=== PATIENT | male | born 1960 | race Caucasian/White ===

== ENCOUNTER 2024-02-28 10:05 | Inpatient (IN) | payer OTHER, SELFPAY ==
[2024-02-28] VITALS (11 sets, daily range): BP systolic 114–137; BP diastolic 72–94; PULSE 68–86; RESP 15–20; TEMP 36.6–37.3; O2SAT 90–99; BMI 35.0
--- NOTE | ~2024-02-28 | US_ITS ---
EXAMINATION: US venous doppler [facility] DATE: 02/28/2024 11:20 INDICATION: Left lower limb erythema and swelling TECHNIQUE: Grayscale ultrasound images without and with compression and Doppler ultrasound images of the left lower extremity veins were obtained. COMPARISON: None. FINDINGS: The visualized portions of left common femoral vein, profunda (deep) femoral vein, femoral vein, popl iteal vein, peroneal trunk, peroneal veins, posterior tibial veins and greater saphenous vein outflow are patent. IMPRESSION: 1. No deep venous thrombosis in the left lower limb. Reviewed, dictated and finalized at location A.
[2024-02-28 11:57] LABS: Basophils Percent Auto 0.3 % (0.2-1.2); Eosinophils Absolute Auto 0.3 K/mm3 (0-0.3); Eosinophils Percent Auto 2.4 % (0-4.4); Hemoglobin 14.6 g/dL (14.0-18.0); Immature Granulocyte Absolute 0.06 K/mm3 (0.00-0.031); Immature Granulocyte Percent A 0.5 % (0-0.5); Lymphocytes Absolute Auto 1.31 K/mm3 (0.9-3.2); Lymphocytes Percent Auto 10.9 % (18.3-44.2); Mean Corpuscular Volume 88.5 fl (80-100); Mean Platelet Volume 9.4 fl (7.4-10.4); Monocytes Absolute Auto 1.3 K/mm3 (0.1-0.6); Monocytes Percent Auto 10.4 % (2.6-8.5); Neutrophils Percent Auto 75.5 % (45.5-73.1); Platelet Count Result 213 k/mm3 (150-375); Red Blood Count 4.86 M/mm3 (4.6-6.20); Red Cell Distribution Width 12.4 % (11.5-14.5)
[2024-02-28 12:07] LABS: Alanine Aminotransferase 18 U/L (6-50); Albumin Level 3.9 g/dL (3.5-5.1); Alkaline Phosphatase 107 U/L (38-126); Anion Gap 7 mmol/L (4-12); Aspartate Amino Transferase 24 U/L (17-59); Bilirubin,Total 0.8 mg/dL (0.2-1.3); Blood Urea Nitrogen 22 mg/dL (9-20); Calcium 9.6 mg/dL (8.4-10.2); Carbon Dioxide 29 mmol/L (22-30); Chloride 100 mmol/L (98-107); Estimated CRCL calculation 65 ml/min; Estimated Glomerular Filt Rate 56; Glucose 182 mg/dL (65-110); Potassium 3.5 mmol/L (3.4-5.0); Sodium 136 mmol/L (137-145)
[2024-02-28 12:08] LABS: Lactic Acid Reflex 1.5 mmol/L (0.7-2.0)
[2024-02-28 12:10] LABS: INR 1.1; Prothrombin Time 14.2 Seconds (11.1-14.7)
[2024-02-28] MEDS: CEFEPIME 1 GM/NS 50 ML 1 GM/50 ML BAG IVPB ×2 (13:10→23:26)
[2024-02-28] MEDS: ONDANSETRON INJ 4 MG/2 ML VIAL IV PUSH (13:10)
[2024-02-28] MEDS: MORPHINE SULFATE (*CRX) 4 MG/ML INJ IV PUSH (13:10)
[2024-02-28] MEDS: SODIUM CHLORIDE 0.9% IV 1,000 ML 150 ML IV CONT (13:12)
--- NOTE | 2024-02-28 13:13 | ED.GENADULT ---
HPI - General Adult General Chief complaint: Extremity Problem,Nontraumatic Stated complaint: left leg infection Time Seen by Provider: 02/28/24 10:33 Source: patient Mode of arrival: ambulatory Limitations: no limitations History of Present Illness HPI narrative: 63-year-old with a history of diabetes, hypertension, recurrent cellulitis to his left leg here with a complaint of pain, redness for past several days. He denies any trauma. No history of fever or chills with it is states that redness is extending all the way up to his groin. Onset (ago): week(s) (1) Location: lower extremity (Left leg) Radiation: extremity Severity: moderate Quality: aching Pain Consistency: constant Relieving factors: none Exacerbating factors: none Related Data Allergies Allergy/AdvReac Type Severity Reaction Status Date / Time No Known Allergies Allergy Unknown Verified 01/14/08 09:47 Review of Systems Review of Systems: All systems reviewed & are unremarkable except as noted in HPI and below Constitutional: Constitutional: Reports no additional constitutional complaints Eyes: Eyes: Reports no additional eye complaints ENT: Reports system reviewed and no additional complaints, except as documented Cardiovascular: Cardiovascular: Reports no additional cardiovascular complaints Respiratory: Respiratory: Reports no additional respiratory complaints Gastrointestinal: Gastrointestinal: Reports no additional gastrointestinal complaints Musculoskeletal: Musculoskeletal: Reports as per HPI Integumentary/Breasts: Skin/Breast: Reports as per HPI Neurologic: Reports system reviewed and no additional complaints, except as documented Psychiatric: Psychiatric: Reports no additional psychiatric complaints Exam Narrative: GENERAL: Well-appearing, well-nourished, and in no acute distress. HEAD: Normocephalic, atraumatic. EYES: PERRLA and EOMI. ENT: Nares clear, no rhinorrhea or epistaxis. Mucous membranes moist. NECK: Supple. CHEST: Clear to auscultation. No respiratory distress. HEART: Regular rate and rhythm. No murmur heard. Normal peripheral pulses. ABDOMEN: Soft, nontender, nondistended, normal active bowel sounds. EXTREMITIES: Normal range of motion. Examination of his left lower extremity shows moderate redness, swelling and warmth on palpating redness extending into his left groin SKIN: Warm, dry, no rash. NEURO: No focal deficits. Alert and oriented x3. PSYCH: Normal mood and affect. Course Course Emergency Course: Notified patient about his lab work, venous Doppler studies. Agreeable with admission. I discussed with hospitalist accepted the patient. Vital Signs Vital signs: Vital Signs Temperature 36.7 C 02/28/24 10:07 Pulse Rate 86 02/28/24 10:07 Respiratory Rate 18 02/28/24 10:07 Blood Pressure 137/79 02/28/24 10:07 Pulse Oximetry 97 02/28/24 10:07 Oxygen Delivery Room Air 02/28/24 10:07 Temperature 37.0 C 02/28/24 12:46 Pulse Rate 72 02/28/24 12:46 Respiratory Rate 18 02/28/24 12:46 Blood Pressure 114/80 02/28/24 12:46 Pulse Oximetry 97 02/28/24 12:46 Oxygen Delivery Room Air 02/28/24 10:07 Medical Decision Making Vital Signs Vital Signs: Vital Signs Temperature 36.7 C 02/28/24 10:07 Pulse Rate 86 02/28/24 10:07 Respiratory Rate 18 02/28/24 10:07 Blood Pressure 137/79 02/28/24 10:07 Pulse Oximetry 97 02/28/24 10:07 Oxygen Delivery Room Air 02/28/24 10:07 Temperature 37.0 C 02/28/24 12:46 Pulse Rate 72 02/28/24 12:46 Respiratory Rate 18 02/28/24 12:46 Blood Pressure 114/80 02/28/24 12:46 Pulse Oximetry 97 02/28/24 12:46 Oxygen Delivery Room Air 02/28/24 10:07 Lab Data 02/28/24 11:50 02/28/24 11:50 Labs: Lab Results 02/28/24 Range/Units 11:50 WBC 12.0 H (4.5-10.0) K/mm3 RBC 4.86 (4.6-6.20) M/mm3 Hgb 14.6 (14.0-18.0) g/dL Hct 43.0 (42.0-52.0) % MCV
[2024-02-28] MEDS: VANCOMYCIN 1,500 MG/NS 500 ML 1,500 MG/500 ML BAG 333.33 MG IVPB (13:55)
[2024-02-28] MEDS: SODIUM CHLORIDE 0.9% IV 1,000 ML 125 ML IV CONT (13:56)
--- NOTE | 2024-02-28 14:42 | PC.NURSE ---
This patient, Jay Auguste, was admitted to [facility] Surg Room 309-01. Patient/family oriented to hospital policies and general routines including ID bracelet, bed and alarms, visiting hours, pain management, procedures, bathroom and other care routines, personal items, smoking policy, room service/diet, and visiting hours. Information on how to activate the Rapid Response Team has been discussed. Patient/Family are encouraged to report perceived risks to care and to ask questions if they do not understand what they are told or what they should do.
--- NOTE | 2024-02-28 14:47 | PM.IMHP ---
H&P: HPI History of Present Illness Date/Time: 02/28/24 14:00 Chief Complaint: Redness and swelling of the left leg. Narrative: This is a 63-year-old male smoker with history of cellulitis, hypertension, hyperlipidemia, and type 2 diabetes mellitus who presented to the emergency department for evaluation of redness and swelling of the left lower leg. The patient provides the following history. He has developed pain, redness, and swelling of the left lower leg the past couple of days and he came in today as the redness is starting to extend up to his groin. He describes a moderate, aching throbbing pain in that leg. These symptoms are similar to prior episodes of cellulitis. He denies systemic symptoms such as fever, chills, sweats, nausea, and vomiting. He also denies chest pain, pleuritic pain shortness In the ED: He was afebrile on arrival with stable vital signs. Labs were significant for WBC count of 12.0, sodium 136, BUN 22, creatinine 1.30, glucose 182. Left leg venous Doppler ultrasound was negative for DVT. He received 1 g cefepime and 1500 mg vancomycin in the ED and he is being admitted in this setting for further IV antibiotics for left lower extremity cellulitis. Review of Systems Review of Systems: 12 systems were reviewed and are negative except for as per HPI. [facility]LY [facility] Past Medical History Medical History Diabetic neuropathy Hyperlipidemia Hypertension Type 2 diabetes mellitus Surgical History Surgical History (Updated 02/28/24 @ 19:59 by Sherri Dubose PA-C) History of arthroscopy of right knee Social History Social History (Updated 02/28/24 @ 19:59 by Sherri Dubose PA-C) Social History: Surrogate medical decision maker: Phi Auguste, sibling. Code status: Full code. Smoking packs per day: 1 Smoking cigarettes per day: 20.0 Years smoked: 56 Smoking pack-years: 56.00 Smoking status: Current every day smoker Tobacco type: cigarettes Second hand tobacco smoke exposure: No Alcohol intake: former Substance use: current Substance use type: marijuana Last use: 02/21/24 Do You Feel Safe in your Home?: Yes Lack of Transportation: No Lack of Food: Never True Current Housing: I Have Housing Concerned About Future Housing: No Difficulty Paying Gas/Electric Bills: No Difficulty Paying for Meds: No Currently Unemployed: No Education: High School Diploma/GED Difficulty w/ Childcare or Family Care: No Spiritual care concerns: No Meds Home Medications and Allergies Home Medications Medication Instructions Recorded Confirmed Type albuterol sulfate 90 mcg/actuation 2 puff inhalation Q4H PRN sob 02/28/24 02/28/24 History aerosol inhaler amlodipine 10 mg tablet 10 mg PO DAILY 02/28/24 02/28/24 History empagliflozin 25 mg tablet 25 mg PO DAILY 02/28/24 02/28/24 History (Jardiance) gabapentin 600 mg tablet 600 mg PO Q12H 02/28/24 02/28/24 History glipizide 10 mg tablet 10 mg PO BID 02/28/24 02/28/24 History losartan 100 1 tablet PO DAILY 02/28/24 02/28/24 History mg-hydrochlorothiazide 25 mg tablet metformin 500 mg tablet,extended 1,000 mg PO BID 02/28/24 02/28/24 History release 24 hr simvastatin 20 mg tablet 20 mg PO DAILY 02/28/24 02/28/24 History Allergies Allergy/AdvReac Type Severity Reaction Status Date / Time No Known Allergies Allergy Unknown Verified 02/28/24 15:19 Vital Signs Vital Signs - 24 hr 02/28/24 10:07 02/28/24 10:54 02/28/24 11:17 Temperature 98.0 F 98.6 F Pulse Rate 86 75 71 Respiratory Rate 18 20 17 Blood Pressure 137/79 124/74 120/83 Pulse Oximetry 97 94 96 Oxygen Delivery Room Air 02/28/24 11:51 02/28/24 12:01 02/28/24 12:17 Temperature 97.8 F Pulse Rate 72 75 73 Respiratory Rate 18 19 20 Blood Pressure 117/76 120/83 123/75 Pulse Oximetry 97 98 97 Oxygen Delivery 02/28/24 12:46 02/28/24 13:01 02/28/24 13:31 Temperatur
[2024-02-28 16:20] LABS: Hemoglobin A1C 8.5 % (<5.7)
[2024-02-28 18:29] LABS: Glucose Point of Care 147 mg/dl (65-105)
[2024-02-28 20:14] LABS: Glucose Point of Care 226 mg/dl (65-105)
[2024-02-28] MEDS: HYDROcodone/acetaminophen (*CRX) 5-325 MG TABLET 1 TAB PO (20:41)
[2024-02-28] MEDS: GABAPENTIN 300 MG CAPSULE 600 MG PO (20:42)
[2024-02-29 05:26] LABS: Basophils Percent Auto 0.4 % (0.2-1.2); Eosinophils Absolute Auto 0.7 K/mm3 (0-0.3); Eosinophils Percent Auto 7.1 % (0-4.4); Hematocrit 39.3 % (42.0-52.0); Hemoglobin 12.9 g/dL (14.0-18.0); Immature Granulocyte Absolute 0.05 K/mm3 (0.00-0.031); Immature Granulocyte Percent A 0.5 % (0-0.5); Lymphocytes Percent Auto 18.3 % (18.3-44.2); Mean Corpuscular HGB Conc 32.8 g/dl (32-36); Mean Corpuscular Hemoglobin 30.1 pg (26-34); Mean Corpuscular Volume 91.8 fl (80-100); Monocytes Absolute Auto 1.3 K/mm3 (0.1-0.6); Monocytes Percent Auto 13.6 % (2.6-8.5); Neutrophils Absolute Auto 5.6 K/mm3 (1.3-6.7); Neutrophils Percent Auto 60.1 % (45.5-73.1); Platelet Count Result 221 k/mm3 (150-375); Red Blood Count 4.28 M/mm3 (4.6-6.20); Red Cell Distribution Width 12.4 % (11.5-14.5); White Blood Count 9.3 K/mm3 (4.5-10.0)
[2024-02-29 05:39] LABS: Anion Gap 1 mmol/L (4-12); Blood Urea Nitrogen 22 mg/dL (9-20); Calcium 8.8 mg/dL (8.4-10.2); Carbon Dioxide 31 mmol/L (22-30); Chloride 103 mmol/L (98-107); Estimated CRCL calculation 70 ml/min; Estimated Glomerular Filt Rate > 60; Glucose 141 mg/dL (65-110); Potassium 3.8 mmol/L (3.4-5.0); Sodium 135 mmol/L (137-145)
[2024-02-29 05:56] VITALS: BP 102/60; PULSE 64; RESP 20; TEMP 36.4; O2SAT 94
[2024-02-29 08:00] LABS: Glucose Point of Care 139 mg/dl (65-105)
[2024-02-29] MEDS: glipiZIDE 5 MG TABLET 10 MG PO ×2 (08:34→17:28)
[2024-02-29] MEDS: metFORMIN HCL XR 500 MG TAB.SR.24H 1000 MG PO ×2 (08:34→17:27)
[2024-02-29] MEDS: amLODIPine BESYLATE 5 MG TABLET 10 MG PO (08:35)
[2024-02-29] MEDS: SIMVASTATIN 20 MG TABLET PO (08:35)
[2024-02-29] MEDS: hydroCHLOROthiazide 25 MG TABLET PO (08:35)
[2024-02-29] MEDS: EMPAGLIFLOZIN 25 MG TABLET PO (08:35)
[2024-02-29] MEDS: GABAPENTIN 300 MG CAPSULE 600 MG PO ×2 (08:35→21:09)
[2024-02-29] MEDS: VANCOMYCIN 1,500 MG/NS 500 ML 1,500 MG/500 ML BAG 250 MG IVPB (08:36)
[2024-02-29] MEDS: LOSARTAN POTASSIUM 100 MG TABLET PO (08:36)
--- NOTE | 2024-02-29 08:38 | PM.IMPN ---
Progress Note: A&P Assessment and Plan (1) Left leg cellulitis: Code(s): L03.116 - Cellulitis of left lower limb Status: Acute Assessment and Plan: Cellulitis of the lelft lower extremity with no evidence of wound or ulceration. - Cefepime 1g q12 - Vancomycin 1500 mg q18 - Analgesics are available as needed. (2) Type 2 diabetes mellitus: Code(s): E11.9 - Type 2 diabetes mellitus without complications Status: Acute Assessment and Plan: - hypoglycemia protocol - POC blood glucose ACHS - home medication continued - empagliflozin, glipizide, metformin - correct regimen ordered - low dose TIDWM and HS - A1C 8.5 (3) Diabetic neuropathy: Code(s): E11.40 - Type 2 diabetes mellitus with diabetic neuropathy, unspecified Status: Acute Assessment and Plan: Continue gabapentin 600 mg q12 (4) Hypertension: Code(s): I10 - Essential (primary) hypertension Status: Acute Assessment and Plan: Blood pressures remain stable. Well controlled on home medication. - Amlodipine 10 mg daily - losartan 100 mg daily - Hydrochlorothiazide 25 mg daily (5) Hyperlipidemia: Code(s): E78.5 - Hyperlipidemia, unspecified Status: Acute Assessment and Plan: Continue home simvastatin 20 mg daily. Time Spent With Patient Time with patient: 25 - 35 minutes Subjective Date/time seen: 02/29/24 08:38 Interval history: 63-year-old male smoker with history of cellulitis, hypertension, hyperlipidemia, and type 2 diabetes mellitus who presented to the emergency department for evaluation of redness and swelling of the left lower leg.? Review of Systems Review of Systems: All systems reviewed & are unremarkable except as noted in HPI and below Exam Narrative: AF HR 69 RR 16 SpO2 94 BP 110/72 General: male in no acute respiratory distress who is nontoxic appearing, lying semi recumbent in bed. HEENT: Normocephalic. Atraumatic. Pupils equal round reactive to light. Extraocular movement intact. Sclera clear and anicteric. No facial asymmetry. Chest: Lungs are clear to auscultation bilaterally. No wheezes or crackles. CV: Heart was regular rate and rhythm. S1/S2. No murmurs, gallops, or rubs. Abd: Abdomen was soft. Nontender. Nondistended. Positive bowel sounds. No organomegaly or masses. Ext: No clubbing, cyanosis. 2+ DP pulses bilaterally. Neuro: Patient is alert and oriented x4. Strenth is 5/5 in both upper and lower extremities. Cranial nerves 2-12 are intact. Speech is clear. Psych: Normal mood and affect. Patient is pleasant and cooperative. Skin: Large edematous, erythematous warm area of the left lower extremity from knee to ankle joint. Objective Data Vital Signs Vital Signs: Vital Signs - 24 hr 02/28/24 10:07 02/28/24 10:54 02/28/24 11:17 Temperature 98.0 F 98.6 F Pulse Rate 86 75 71 Respiratory Rate 18 20 17 Blood Pressure 137/79 124/74 120/83 Pulse Oximetry 97 94 96 Oxygen Delivery Room Air 02/28/24 11:51 02/28/24 12:01 02/28/24 12:17 Temperature 97.8 F Pulse Rate 72 75 73 Respiratory Rate 18 19 20 Blood Pressure 117/76 120/83 123/75 Pulse Oximetry 97 98 97 Oxygen Delivery 02/28/24 12:46 02/28/24 13:01 02/28/24 13:31 Temperature 98.6 F 98.0 F Pulse Rate 72 79 70 Respiratory Rate 18 15 20 Blood Pressure 114/80 129/94 H 128/76 Pulse Oximetry 97 98 99 Oxygen Delivery 02/28/24 15:42 02/28/24 21:08 02/28/24 20:00 Temperature 98.3 F 99.2 F Pulse Rate 72 68 Respiratory Rate 16 20 Blood Pressure 132/85 124/72 Pulse Oximetry 96 90 Oxygen Delivery Room Air 02/29/24 05:56 Temperature 97.6 F Pulse Rate 64 Respiratory Rate 20 Blood Pressure 102/60 Pulse Oximetry 94 Oxygen Delivery Intake/Output Intake/Output: Intake & Output 02/26/24 02/27/24 02/28/24 02/29/24 23:59 23:59 23:59 23:59 Intake Total 1296.8 550 Output Total 620 400 Balance 676.8 150 Meds/Results Medications:
[2024-02-29] MEDS: HYDROcodone/acetaminophen (*CRX) 5-325 MG TABLET 1 TAB PO ×2 (08:48→21:09)
[2024-02-29] MEDS: ENOXAPARIN 40 MG/0.4 ML SYRINGE SUB-Q (08:48)
[2024-02-29 08:57] VITALS: O2SAT 95
[2024-02-29 12:23] LABS: Glucose Point of Care 174 mg/dl (65-105)
[2024-02-29] MEDS: CEFEPIME 1 GM/NS 50 ML 1 GM/50 ML BAG IVPB (12:30)
[2024-02-29 14:00] VITALS: BP 110/72; PULSE 69; RESP 16; TEMP 36.4; O2SAT 94
[2024-02-29 17:25] LABS: Glucose Point of Care 96 mg/dl (65-105)
[2024-02-29 20:00] VITALS: PULSE 73; RESP 20; O2SAT 94
[2024-02-29 21:38] LABS: Glucose Point of Care 83 mg/dl (65-105)
[2024-02-29 21:44] VITALS: BP 123/68; PULSE 73; RESP 20; TEMP 36.4; O2SAT 94
[2024-03-01] MEDS: CEFEPIME 1 GM/NS 50 ML 1 GM/50 ML BAG IVPB (00:57)
[2024-03-01] MEDS: VANCOMYCIN 1,500 MG/NS 500 ML 1,500 MG/500 ML BAG 250 MG IVPB (01:41)
[2024-03-01 06:00] VITALS: BP 127/60; PULSE 59; RESP 20; TEMP 37.2; O2SAT 93
[2024-03-01 06:35] LABS: Estimated CRCL calculation 83 ml/min; Estimated Glomerular Filt Rate > 60
[2024-03-01 07:40] LABS: Glucose Point of Care 93 mg/dl (65-105)
[2024-03-01] MEDS: hydroCHLOROthiazide 25 MG TABLET PO (08:45)
[2024-03-01] MEDS: GABAPENTIN 300 MG CAPSULE 600 MG PO (08:45)
[2024-03-01] MEDS: metFORMIN HCL XR 500 MG TAB.SR.24H 1000 MG PO (08:45)
[2024-03-01] MEDS: SIMVASTATIN 20 MG TABLET PO (08:45)
[2024-03-01] MEDS: amLODIPine BESYLATE 5 MG TABLET 10 MG PO (08:45)
[2024-03-01] MEDS: EMPAGLIFLOZIN 25 MG TABLET PO (08:45)
[2024-03-01] MEDS: glipiZIDE 5 MG TABLET 10 MG PO (08:45)
[2024-03-01] MEDS: ENOXAPARIN 40 MG/0.4 ML SYRINGE SUB-Q (08:45)
[2024-03-01] MEDS: LOSARTAN POTASSIUM 100 MG TABLET PO (08:45)
[2024-03-01] MEDS: HYDROcodone/acetaminophen (*CRX) 5-325 MG TABLET 1 TAB PO (08:46)
[2024-03-01 08:57] LABS: Alanine Aminotransferase 23 U/L (6-50); Albumin Level 3.4 g/dL (3.5-5.1); Alkaline Phosphatase 138 U/L (38-126); Anion Gap 3 mmol/L (4-12); Aspartate Amino Transferase 33 U/L (17-59); Basophils Absolute Auto 0.1 K/mm3 (0.0-0.1); Basophils Percent Auto 0.6 % (0.2-1.2); Bilirubin,Total 0.5 mg/dL (0.2-1.3); Blood Urea Nitrogen 23 mg/dL (9-20); Calcium 8.8 mg/dL (8.4-10.2); Carbon Dioxide 27 mmol/L (22-30); Chloride 105 mmol/L (98-107); Eosinophils Absolute Auto 0.6 K/mm3 (0-0.3); Eosinophils Percent Auto 6.3 % (0-4.4); Estimated CRCL calculation 83 ml/min; Estimated Glomerular Filt Rate > 60; Glucose 89 mg/dL (65-110); Hematocrit 39.4 % (42.0-52.0); Hemoglobin 12.9 g/dL (14.0-18.0); Immature Granulocyte Absolute 0.06 K/mm3 (0.00-0.031); Immature Granulocyte Percent A 0.6 % (0-0.5); Lymphocytes Percent Auto 23.8 % (18.3-44.2); Mean Corpuscular HGB Conc 32.7 g/dl (32-36); Mean Corpuscular Hemoglobin 30.1 pg (26-34); Mean Corpuscular Volume 92.1 fl (80-100); Mean Platelet Volume 9.8 fl (7.4-10.4); Monocytes Absolute Auto 1.1 K/mm3 (0.1-0.6); Monocytes Percent Auto 11.8 % (2.6-8.5); Neutrophils Absolute Auto 5.3 K/mm3 (1.3-6.7); Neutrophils Percent Auto 56.9 % (45.5-73.1); Platelet Count Result 265 k/mm3 (150-375); Potassium 3.3 mmol/L (3.4-5.0); Red Blood Count 4.28 M/mm3 (4.6-6.20); Red Cell Distribution Width 12.3 % (11.5-14.5); Sodium 135 mmol/L (137-145); White Blood Count 9.3 K/mm3 (4.5-10.0)
[2024-03-01 11:16] LABS: Glucose Point of Care 134 mg/dl (65-105)
[2024-03-01 14:00] VITALS: BP 116/61; PULSE 65; RESP 18; TEMP 35.9; O2SAT 96
--- NOTE | 2024-03-01 18:14 | PM.DS ---
DS: Admitting Diagnosis Discharge Date 03/01/24 Admitting Diagnosis left leg cellulitis type 2 diabetes diabetic neuropathy hypertension hyperlipidemia DS: Discharge Diagnosis Discharge Diagnosis (1) Left leg cellulitis: Code(s): L03.116 - Cellulitis of left lower limb Status: Acute (2) Type 2 diabetes mellitus: Code(s): E11.9 - Type 2 diabetes mellitus without complications Status: Acute (3) Diabetic neuropathy: Code(s): E11.40 - Type 2 diabetes mellitus with diabetic neuropathy, unspecified Status: Acute (4) Hypertension: Code(s): I10 - Essential (primary) hypertension Status: Acute (5) Hyperlipidemia: Code(s): E78.5 - Hyperlipidemia, unspecified Status: Acute DS: Summary Hospital Course Reason for hospitalization: left leg cellulitis type 2 diabetes diabetic neuropathy hypertension hyperlipidemia Hospital Course: 63-year-old male smoker with history of cellulitis, hypertension, hyperlipidemia, and type 2 diabetes mellitus who presented to the emergency department for evaluation of redness and swelling of the left lower leg. Diagnosed with cellulitis and started on vancomycin and cefepime. Patient had mild leukocytosis on arrival which resolved with IV antibiotics. Patient remains afebrile without leukocytosis and improving cellulitis. He was transitioned to keflex at discharge. Patient states he has received keflex in the past for prior cellulitis episodes. Discussed with patient that his diabetes is not well controlled at this time due to his A1c being elevated at 8.5. He states understanding and will discuss this with PCP. Patient discharged home in a stable condition with plan to follow up with his PCP in 1 week. He will remain on keflex for 7 days to complete his antibiotic course. Status at Discharge Functional status at discharge: independent ambulation Time Spent with Patient Time attestation: Total time spent providing and/or coordinating discharge services: Time spent: Greater than 30 minutes Exam Narrative: AF HR 65 RR 18 SpO2 96 BP 116/61 General: male in no acute respiratory distress who is nontoxic appearing, lying semi recumbent in bed. HEENT: Normocephalic. Atraumatic. Pupils equal round reactive to light. Extraocular movement intact. Sclera clear and anicteric. No facial asymmetry. Chest: Lungs are clear to auscultation bilaterally. No wheezes or crackles. CV: Heart was regular rate and rhythm. S1/S2. No murmurs, gallops, or rubs. Abd: Abdomen was soft. Nontender. Nondistended. Positive bowel sounds. No organomegaly or masses. Ext: No clubbing, cyanosis. 2+ DP pulses bilaterally. Neuro: Patient is alert and oriented x4. Strenth is 5/5 in both upper and lower extremities. Cranial nerves 2-12 are intact. Speech is clear. Psych: Normal mood and affect. Patient is pleasant and cooperative. Skin: Improving edematous, erythematous warm area of the anterior aspect of the left lower extremity from knee to ankle joint. DS: Data Data Completed and Pending Completed studies during hospitalization: Venous Doppler Labs on day of discharge: Labs from last 24 hours 03/01/24 03/01/24 03/01/24 11:11 07:37 05:59 WBC RBC Hgb Hct MCV MCH MCHC RDW Plt Count MPV Immature Gran % (Auto) Neut % (Auto) Lymph % (Auto) Cameron % (Auto) Eos % (Auto) Baso % (Auto) Lymph # (Auto) Cameron # (Auto) Eos # (Auto) Baso # (Auto) Abs Immat Gran (auto) Absolute Neuts (auto) Absolute Nucleated RBC Nucleated RBC % Sodium Potassium Chloride Carbon Dioxide Anion Gap BUN Creatinine 1.00 Estim Creat Clear Calc 83 Estimated GFR > 60 Glucose POC Capillary Glucose 134 H 93 Calcium Total Bilirubin AST ALT Alkaline Phosphatase Total Protein Albumin 03/01/24 02/29/24 05:55 21:26 WBC 9.3 RBC 4.28 L Hgb 12.9
== END 2024-03-01 15:15 | disposition home or self-care (01) | DRG 383 ==
LOC: ANHED 13:17 → ANH3MEDSUR 14:27
PROVIDERS: Physician Assistant; Student in an Organized Health Care Education/Training Program; Admitting Provider Hospitalist; Emergency Provider Family Medicine; PCP Family Medicine; Visit Provider General Practice
DX: L03.116 Cellulitis of left lower limb (principal); E11.40 Type 2 diabetes mellitus with diabetic neuropathy, unspecified; I10 Essential (primary) hypertension; F17.210 Nicotine dependence, cigarettes, uncomplicated
CPT/HCPCS: 36415; 80048; 80053; 82565; 82948; 83036; 83605; 85025; 85610; 87040; 93971; 96374; 96375; 99285; A9270; J0692; J1650; J2270; J2405; J3370; J7030

== ENCOUNTER 2025-01-27 09:56 | Emergency (ER) | payer OTHER, SELFPAY ==
[2025-01-27 10:00] VITALS: BP 127/75; PULSE 86; RESP 18; TEMP 36.7; O2SAT 95
--- OUTSIDE RECORDS SUMMARY | 2025-01-27 11:09 | XMS_ITS | CONTINUITY OF CARE DOCUMENT ---
Author Name stas mcclelland Address Unknown Organization [facility] Address [address] [place] [address] Phone [phone] Care Team Providers Care Cook Restaurant Name Role Phone Bright Monsalve MD Unavailable [phone] SEMAJ RODRIGUEZ MD Unavailable [phone] SEMAJ RODRIGUEZ MD Unavailable [phone] INSURANCE PROVIDERS Payer name Policy type / Coverage type [place] [employer] Medicaid [id number]
--- OUTSIDE RECORDS SUMMARY | 2025-01-27 11:09 | XMS_ITS | Clinical Summary ---
Author Organization [facility] Address [address] [place] [address] Phone Care Team Providers Care Gauge Maker Apprentice Name Role Phone Provider, Not On File Primary Care Provider Unav ailable Social History Tobacco Use Types Packs/Day Years Used Date Smoking Tobacco: Never Assessed Sex and Gender Information Value Date Recorded Sex Assigned at Not on file Legal Sex Male 7:28 PM CDT Gender Identity Not on file Sexual Orientation Not on file Plan of Treatment Not on file Care Teams Gauge Maker Apprentice Relationship Specialty Start Date End Date Provider, Not On File [place] PCP - General Radiology 06/04/16
[2025-01-27 13:50] VITALS: BP 130/60; PULSE 88; RESP 17; TEMP 38.3; O2SAT 93
[2025-01-27] MEDS: ACETAMINOPHEN 500 MG TABLET 1000 MG PO (14:13)
[2025-01-27 14:20] LABS: Hematocrit 49.9 % (42.0-52.0); Hemoglobin 17.2 g/dL (14.0-18.0); Mean Corpuscular HGB Conc 34.5 g/dl (32-36); Mean Corpuscular Hemoglobin 30.6 pg (26-34); Mean Corpuscular Volume 88.6 fl (80-100); Mean Platelet Volume 9.7 fl (7.4-10.4); Platelet Count Result 237 k/mm3 (150-375); Red Blood Count 5.63 M/mm3 (4.6-6.20); Red Cell Distribution Width 12.3 % (11.5-14.5); White Blood Count 17.5 K/mm3 (4.5-10.0)
[2025-01-27 14:37] LABS: Albumin Level 4.4 g/dL (3.5-5.1); Alkaline Phosphatase 137 U/L (38-126); Anion Gap 15 mmol/L (4-12); Aspartate Amino Transferase 41 U/L (17-59); Bilirubin,Total 1.1 mg/dL (0.2-1.3); Blood Urea Nitrogen 22 mg/dL (9-20); Calcium 9.3 mg/dL (8.4-10.2); Carbon Dioxide 25 mmol/L (22-30); Chloride 98 mmol/L (98-107); Estimated CRCL calculation 67 ml/min; Estimated Glomerular Filt Rate 60; Glucose 206 mg/dL (65-110); Potassium 3.1 mmol/L (3.4-5.0); Sodium 138 mmol/L (137-145)
[2025-01-27 14:45] LABS: Band Neutrophils Percent 13 % (0-6); Lymphocytes Absolute Manual 0.87 K/mm3 (1.1-4.5); Monocytes Percent Manual 4 % (3-9); Neutrophils Absolute Manual 15.92 K/mm3 (1.3-6.7); Neutrophils Percent Manual 78 % (46-73); Platelet Clumps Present; Platelet Estimate Adequate (Adequate); Schistocytes None Seen; Total Cells Counted 100
[2025-01-27 14:54] LABS: Alanine Aminotransferase 40 U/L (6-50)
--- NOTE | 2025-01-27 14:58 | ED_ITS ---
HPI - General Adult General Chief complaint: Extremity Problem,Nontraumatic Stated complaint: lle cellulitis Time Seen by Provider: 01/27/25 13:15 History of Present Illness HPI narrative: 64-year-old male presents to the emergency department for evaluation for worsening cellulitis on the right lower extremity. Patient does have a history of cellulitis on the left lower extremity for which he required hospitalization. Patient states symptoms started yesterday and have encompassed his entire right lower extremity below the knee and above the ankle. Related Data Home Medications ?Medication ?Instructions ?Recorded ?Confirmed ?Last Taken ?Type albuterol sulfate 90 mcg/actuation 2 puff inhalation Q4H PRN sob 02/28/24 02/28/24 02/23/24 History aerosol inhaler amlodipine 10 mg tablet 10 mg PO DAILY 02/28/24 02/28/24 1 Day Ago History ~02/27/24 empagliflozin 25 mg tablet 25 mg PO DAILY 02/28/24 02/28/24 02/27/24 History (Jardiance) gabapentin 600 mg tablet 600 mg PO Q12H 02/28/24 02/28/24 02/27/24 History glipizide 10 mg tablet 10 mg PO BID 02/28/24 02/28/24 02/27/24 History losartan 100 1 tablet PO DAILY 02/28/24 02/28/24 02/27/24 History mg-hydrochlorothiazide 25 mg tablet metformin 500 mg tablet,extended 1,000 mg PO BID 02/28/24 02/28/24 02/27/24 History release 24 hr simvastatin 20 mg tablet 20 mg PO DAILY 02/28/24 02/28/24 02/27/24 History Allergies Allergy/AdvReac Type Severity Reaction Status Date / Time No Known Allergies Allergy Unknown Verified 01/27/25 09:59 Review of Systems 2 Review of Systems: All systems reviewed & are unremarkable except as noted in HPI and below PMFSH Past Medical History Medical History (Updated 01/27/25 @ 15:00 by Raudel Aguilera MD) Hyperlipidemia Hypertension Diabetic neuropathy Type 2 diabetes mellitus Surgical History Surgical History (Updated 02/28/24 @ 19:59 by Sherri Dubose PA-C) History of arthroscopy of right knee Social History Social History (Updated 02/28/24 @ 19:59 by Sherri Dubose PA-C) Social History: Surrogate medical decision maker: Phi Auguste, sibling. Code status: Full code. Smoking packs per day: 1 Smoking cigarettes per day: 20.0 Years smoked: 56 Smoking pack-years: 56.00 Smoking status: Current every day smoker Tobacco type: cigarettes Second hand tobacco smoke exposure: No Alcohol intake: former Substance use: current Substance use type: marijuana Last use: 02/21/24 Do You Feel Safe in your Home?: Yes Lack of Transportation: No Lack of Food: Never True Current Housing: I Have Housing Concerned About Future Housing: No Difficulty Paying Gas/Electric Bills: No Difficulty Paying for Meds: No Currently Unemployed: No Education: High School Diploma/GED Difficulty w/ Childcare or Family Care: No Spiritual care concerns: No Exam 2 Narrative: APPEARANCE: Well appearing, no pain, no distress, well-nourished. HEAD: normocephalic, atraumatic. EYES: PERRLA/EOMI, conjunctivae clear. NOSE: Normal no drainage EARS:TMS clear with good light reflex. THROAT: Pharynx clear, no exudate. NECK: Supple. No adenopathy, no masses. RESPIRATORY: Airway patent, respirations nonlabored. Clear to auscultation bilaterally, no rales, rhonchi, wheezing. CARDIOVASCULAR: Regular rate and rhythm without murmurs rubs or gallops. ABDOMINAL: Soft, nontender, nondistended, normal bowel sounds MUSCULOSKELETAL: Moves all extremities. Strength/ROM intact, No edema, No calf tenderness. NEURO: Alert. Cranial nerves II through XII intact. Grossly intact SKIN: Erythema of right lower extremity that is circumferential Course Vital Signs Vital signs: Vital Signs Temperature 98.0 F 01/27/25 10:00 Pulse Rate 86 01/27/25 10:00 Respiratory Rate 18 01/27/25 10:00 Blood Pressure 127/75 01/27/25 10:00 Pulse Oximetry 95 01/27/25 10:00 Oxygen Delivery Room Air 01/27/25 10:00 Temperature 97.2 F L 01/27/25 15:10 Pulse Rate 88 01/27/25 13:50 Respiratory Rate 17 01/27/25 13:50 Blood Pressure 130/60 01/27/25 13:50 Pulse Oximetry 93 01/27/25 13:50 Oxygen Delivery Room Air 01/27/25 10:00 Medical Decision Making MDM Narrative Medical decision making narrative: 64-year-old male presents emergency department for evaluation for cellulitis of the right lower extremity. Patient was febrile with a temperature of 101.0?. Patient does have a leukocytosis of 17.5. Hemoglobin is 17.2. No significant abnormalities on the patient's CMP patient was treated with Tylenol for fever IV Rocephin for cellulitis. Patient was encouraged to stay for further antibiotics due to the significance of his infection. Patient strongly prefers to be discharged home. Differential Diagnosis Differential Diagnosis: Cellulitis, sepsis, erysipelas, DVT Vital Signs Vital Signs: Vital Signs Temperature 98.0 F 01/27/25 10:00 Pulse Rate 86 01/27/25 10:00 Respiratory Rate 18 01/27/25 10:00 Blood Pressure 127/75 01/27/25 10:00 Pulse Oximetry 95 01/27/25 10:00 Oxygen Delivery Room Air 01/27/25 10:00 Temperature 97.2 F L 01/27/25 15:10 Pulse Rate 88 01/27/25 13:50 Respiratory Rate 17 01/27/25 13:50 Blood Pressure 130/60 01/27/25 13:50 Pulse Oximetry 93 01/27/25 13:50 Oxygen Delivery Room Air 01/27/25 10:00 Lab Data Lab results reviewed: Yes I reviewed the patient's lab results. 01/27/25 13:44 01/27/25 13:44 Labs: Lab Results 01/27/25 Range/Units 13:44 WBC 17.5 H (4.5-10.0) K/mm3 RBC 5.63 (4.6-6.20) M/mm3 Hgb 17.2 D (14.0-18.0) g/dL Hct 49.9 (42.0-52.0) % MCV 88.6 (80-100) fl MCH 30.6 (26-34) pg MCHC 34.5 (32-36) g/dl RDW 12.3 (11.5-14.5) % Plt Count 237 (150-375) k/mm3 MPV 9.7 (7.4-10.4) fl Immature Gran % (Auto) Not Reportable Neut % (Auto) Not Reportable Lymph % (Auto) Not Reportable Iroquois % (Auto) Not Reportable Eos % (Auto) Not Reportable Baso % (Auto) Not Reportable Lymph # (Auto) Not Reportable Iroquois # (Auto) Not Reportable Eos # (Auto) Not Reportable Baso # (Auto) Not Reportable Abs Immat Gran (auto) Not Reportable Absolute Neuts (auto) Not Reportable Absolute Nucleated RBC Not Reportable Total Counted 100 Neutrophils % (Manual) 78 H (46-73) % Band Neutrophils % 13 H (0-6) % Lymphocytes % (Manual) 5.0 L (18-44) % Monocytes % (Manual) 4 (3-9) % Nucleated RBC % Not Reportable Abs Neuts (Manual) 15.92 H (1.3-6.7) K/mm3 Abs Lymphs (Manual) 0.87 L (1.1-4.5) K/mm3 Abs Monocytes (Manual) 0.70 (0.1-0.90) K/mm3 Platelet Estimate Adequate (Adequate) Clumped Platelets Present Schistocytes None seen Sodium 138 (137-145) mmol/L Potassium 3.1 L (3.4-5.0) mmol/L Chloride 98 (98-107) mmol/L Carbon Dioxide 25 (22-30) mmol/L Anion Gap 15 H (4-12) mmol/L BUN 22 H (9-20) mg/dL Creatinine 1.23 (0.7-1.3) mg/dL Estim Creat Clear Calc 67 ml/min Estimated GFR 60 (59 - ) Glucose 206 H (65-110) mg/dL Calcium 9.3 (8.4-10.2) mg/dL Total Bilirubin 1.1 (0.2-1.3) mg/dL AST 41 (17-59) U/L ALT 40 (6-50) U/L Alkaline Phosphatase 137 H (38-126) U/L Total Protein 8.0 (6.3-8.2) g/dL Albumin 4.4 (3.5-5.1) g/dL Discharge Plan Discharge Clinical Impression: Cellulitis Qualifiers: Site of cellulitis: extremity Site of cellulitis of extremity: lower extremity Laterality: left Qualified Code(s): L03.116 - Cellulitis of left lower limb Patient Disposition: Home, Self-Care Condition: Stable Instructions: Antibiotic Form, Cellulitis (ED) Additional Instructions: You were recommended to stay due to the seriousness of your cellulitis but you preferred to be discharged home. Please take your antibiotics as directed. If you have any worsening symptoms then please call or return to the emergency department. Have close follow-up with your primary care physician as outpatient. Patient Language: Kinyarwanda Prescriptions: New cephalexin 500 mg capsule 500 mg PO Q6H 7 Days Qty: 28 0RF No Action gabapentin 600 mg tablet 600 mg PO Q12H glipizide 10 mg tablet 10 mg PO BID losartan-hydrochlorothiazide 100-25 mg tablet 1 tablet PO DAILY amlodipine 10 mg tablet 10 mg PO DAILY simvastatin 20 mg tablet 20 mg PO DAILY albuterol sulfate 90 mcg/actuation HFA aerosol inhaler 2 puff INHALATION Q4H PRN (Reason: sob) metformin 500 mg tablet extended release 24 hr 1,000 mg PO BID Jardiance 25 mg tablet 25 mg PO DAILY cephalexin 500 mg capsule 1,000 mg PO Q12H Qty: 28 0RF Follow-up/Referrals: Evan,Jose Nguyen MD [Primary Care Provider] -
[2025-01-27 15:10] VITALS: TEMP 36.2
--- OUTSIDE RECORDS SUMMARY | 2025-01-27 15:35 | XMS_ITS | Clinical Summary ---
Author Organization [facility] Address [address] [place] [address] Phone Care Team Providers Care Train Reservation Clerk Name Role Phone Provider, Not On File Primary Care Provider Unav ailable Social History Tobacco Use Types Packs/Day Years Used Date Smoking Tobacco: Never Assessed Sex and Gender Information Value Date Recorded Sex Assigned at Not on file Legal Sex Male 7:28 PM CDT Gender Identity Not on file Sexual Orientation Not on file Plan of Treatment Not on file Care Teams Train Reservation Clerk Relationship Specialty Start Date End Date Provider, Not On File [place] PCP - General Radiology 06/04/16
--- OUTSIDE RECORDS SUMMARY | 2025-01-27 15:35 | XMS_ITS | CONTINUITY OF CARE DOCUMENT ---
Author Name stas mcclelland Address Unknown Organization [facility] Address [address] [address] [place] [address] Phone [phone] Care Team Providers Care Field Nurse Name Role Phone Bright Monsalve MD Unavailable [phone] SEMAJ RODRIGUEZ MD Unavailable [phone] SEMAJ RODRIGUEZ MD Unavailable [phone] INSURANCE PROVIDERS Payer name Policy type / Coverage type [employer]ling red [employer] Medicaid [id number]
== END 2025-01-27 15:12 | disposition home or self-care (01) ==
PROVIDERS: Emergency Provider Emergency Medicine; PCP Family Medicine
DX: L03.116 Cellulitis of left lower limb (principal); F17.210 Nicotine dependence, cigarettes, uncomplicated; E78.5 Hyperlipidemia, unspecified; I10 Essential (primary) hypertension; E11.40 Type 2 diabetes mellitus with diabetic neuropathy, unspecified; Z79.84 Long term (current) use of oral hypoglycemic drugs
CPT/HCPCS: 36415; 80053; 85025; 96365; 99284; A9270; J0696